=== PATIENT | female | born 1985 | race Two or more races ===

== ENCOUNTER → 2016-09-10 | Outpatient (CLI) | payer OTHER ==
[2016-09-10 17:33] LABS: HEMOGLOBIN 14.3 g/dL (11.7-16.4)
== END | disposition home or self-care (01) ==
LOC: RAD 17:13
PROVIDERS: ATTEND Advanced Practice Midwife
DX: O72.2 Delayed and secondary postpartum hemorrhage (principal)
CPT/HCPCS: 36415; 85025

== ENCOUNTER → 2016-09-14 | Outpatient (CLI) | payer OTHER | END | disposition home or self-care (01) | LOC: CFH 10:20 | PROVIDERS: ATTEND Advanced Practice Midwife | DX: O72.2 Delayed and secondary postpartum hemorrhage (principal); R93.8 Abnormal findings on diagnostic imaging of other specified body structures | CPT/HCPCS: 76830 ==